=== PATIENT | female | born 1975 | race Caucasian/White ===

== ENCOUNTER 2018-07-21 08:36 | Day surgery (SDC) | payer OTHER ==
[2018-07-20 16:34] VITALS: BMI 25.6
[2018-07-21] VITALS (9 sets, daily range): BP systolic 90–112; BP diastolic 49–70; PULSE 64–80; RESP 16–23; Ht 160 cm; Wt 77.0 kg
[~2018-07-21] VITALS: Ht 160 cm; Wt 77.0 kg
[2018-07-21] MEDS ORDERED: ATOR20TA65 ORAL (09:20)
--- NOTE | 2018-07-21 10:04 | PREAC ---
Date/Time of Note Date/Time of Note DATE: 07/21/18 TIME: 10:02 Anesthesia Eval and Record Evaluation Time Pre-Procedure Interview DATE: 07/21/18 TIME: 10:02 Age 43 Sex female NPO: 8 hrs Preoperative diagnosis L groin mass x2 Planned procedure excision L groin mass x2 Past Medical History Past Medical History: Includes Cardio: Dyslipidemia Endo: Diabetes (diet controlled) Surgery & Anesthesia Issues No known issue Meds Anticoagulation: No Beta Memo within 24 hr: No Reason Beta Memo not given: Pt. not on B-Memo Reported Medications Atorvastatin Calcium (Atorvastatin Calcium) 20 Mg Tablet, 1 TAB ORAL QHS 07/21/18 Meds reviewed: Yes Allergies Coded Allergies: No Known Allergy (Unverified , 07/20/18) Allergies Reviewed: Yes Labs/Studies Labs Reviewed: Reviewed by anesthesiologist test: Negative Pre-procedure Exam Last vitals Vital Signs Date Temp Pulse Resp B/P (MAP) Pulse Ox O2 O2 Flow FiO2 Time Delivery Rate 07/21/18 97.3 73 16 105/67 98 09:30 (80) Airway: Adequate mouth opening, Adequate thyromental dist Mallampati: Mallampati II Teeth: Normal Lung: Normal Heart: Normal ASA Physical Status ASA physical status: 2 Emergency: None Planned Anesthetic General/MAC: MAC Pre-operative Attestations Prior to commencing anesthesia and surgery, the patient was re-evaluated, there was verification of: *The patient's identity *The results of appropriate recent lab work and preoperative vital signs *The above evaluation not changing prior to induction *Anesthetic plan, risk benefits, alternative and complications discussed with patient/family; questions answered; patient/family understands, accepts and wishes to proceed. KINGS NASCIMENTO July 21, 2018 10:04
[2018-07-21] MEDS ORDERED: morphine 2 MG INJ IV PRN ×2 (10:30)
[2018-07-21] MEDS ORDERED: LABETALOL HCL 20MG INJ IV PRN (10:30)
[2018-07-21] MEDS ORDERED: ONDANSETRON 4 MG INJ IV PRN (10:30)
[2018-07-21] MEDS ORDERED: DIPHENHYDRAMINE 50 MG INJ IV PRN (10:30)
[2018-07-21] MEDS ORDERED: FENTAnyl 50 MCG/ML VIAL IV PRN ×2 (10:30)
[2018-07-21] MEDS ORDERED: HYDROmorphONE 1 MG/5 ML IV SYRINGE IV PRN ×3 (10:30)
[2018-07-21] MEDS ORDERED: MEPERIDINE 25 MG INJ IV PRN (10:30)
[2018-07-21] MEDS ORDERED: ALBUTEROL 0.083% (NEB) 2.5 MG/3 ML AMP HHN PRN (10:30)
[2018-07-21] MEDS ORDERED: OXYCODONE/ACETAMINOPHEN (5/325) TAB PO PRN ×2 (10:30)
[2018-07-21] MEDS ORDERED: BUPIVACAINE 0.25% (MPF) 30 ML INJ ONE (10:34)
[2018-07-21] MEDS ORDERED: LIDOCAINE 2% (MDV) 20 ML INJ ONE (10:35)
[2018-07-21] MEDS ORDERED: BUPIVACAINE 0.5% (SDV) 30 ML INJ ONE (10:35)
[2018-07-21] MEDS ORDERED: PROPOFOL 40 ML ONE (10:47)
[2018-07-21] MEDS ORDERED: CEFAZOLIN 1 GM INJ ONE (10:47)
[2018-07-21] MEDS ORDERED: MIDAZOLAM 1 MG/ML 2 ML INJ ONE (10:47)
[2018-07-21] MEDS ORDERED: LIDOCAINE 2% (SDV) 5 ML INJ ONE (10:47)
[2018-07-21] MEDS ORDERED: FENTAnyl 50 MCG/ML VIAL ONE (11:03)
--- NOTE | 2018-07-21 11:29 | OPR ---
Date/Time of Note Date/Time of Note DATE: 07/21/18 TIME: 11:25 Operative Report Procedure Date: July 21, 2018 Preoperative Diagnosis left groin mass x 2 Postoperative Diagnosis same Operation/Procedure Performed 1. excision of left lateral groin mass 5 cm mass 5 cm incision 2. localized adjacent tissue transfer with the use of skin flaps 10 sq cm defect of left lateral groin 3. excision of left medial groin mass 5 cm mass 5 cm incision 4. localized adjacent tissue transfer with the use of skin flaps 10 sq cm defect of left medial groin 5. therapeutic injection of subcutaneous local anesthesia Surgeon see signature line [facility] none Anesthesia Type: MAC Estimated Blood Loss: none Transfusion none Specimen left groin mass x 2 Grafts/Implants none Complications none Pt Condition Post Procedure: stable Indications This is a 43-year-old female with 2 left groin masses. She required surgical excision after trial of antibiotic treatment. This is due to persistent pain in the left groin. Risks alternatives benefits and personal were discussed the patient. Potential complications including but not limited to bleeding infection recurrence of masses need for additional operations were discussed the patient. Patient expressed understanding and consents to the operation. Procedure Description Patient is taken to the OR and prepped and draped in usual sterile fashion. Surgical time was performed. IV antibiotics given. Therapeutic subcutaneous local anesthesia was injected in and around both the left lateral and left medial groin masses. 15 blade was used to make elliptical incision around the left lateral groin mass. Dissection with cautery skin onto the mass and the mass was circumferentially excised. Good hemostasis status. Due to tissue defect localization to his transfer with use of skin flaps was performed. Multilayer closed with interrupted 3-0 Vicryl and running 4-0 Monocryl. Attention was then paid to the left medial groin mass. Elliptical incision made with a 15 blade. Dissection with cautery could onto the mass and the mass was circumferentially excised. Good hemostasis status. Due to tissue defect localization just transfer with these of skin flaps was performed. Multilayer closure with interrupted 3-0 Vicryl running 4-0 Monocryl. Steri-Strips and dry dressings were applied to both surgical sites. Doug SULLIVAN July 21, 2018 11:29
[2018-07-21] MEDS ORDERED: HYDROCODONE/APAP (5/325) TAB PO ONE (11:30)
--- NOTE | 2018-07-21 11:40 | PAC ---
Date/Time of Note Date/Time of Note DATE: 07/21/18 TIME: 11:39 Post-Anesthesia Notes Post-Anesthesia Note Last documented vital signs Vital Signs Date Temp Pulse Resp B/P (MAP) Pulse Ox O2 O2 Flow FiO2 Time Delivery Rate 07/21/18 97.8 11:35 07/21/18 97.8 80 80 16 16 90/49 98 98 Room 11:32 1132 (63) 90/4 Air RA 9 Activity: WNL Respiratory function: WNL Cardiovascular function: WNL Mental status: Baseline Pain reasonably controlled: Yes Hydration appropriate: Yes Nausea/Vomiting absent: Yes KINGS NASCIMENTO July 21, 2018 11:40
== END 2018-07-21 12:45 | disposition home or self-care (01) ==
LOC: SDS 08:36
PROVIDERS: ATTEND Surgery
DX: L72.0 Epidermal cyst (principal); E11.9 Type 2 diabetes mellitus without complications; E78.5 Hyperlipidemia, unspecified
CPT/HCPCS: 14001; 80053; 82962; 85025; 85610; 85730; 88307; J0690; J2250; J3010